=== PATIENT | female | born 1945 | race Two or more races ===

== ENCOUNTER 2019-10-08 15:05 | Inpatient (IN) | payer MEDICARE, OTHER ==
[~2019-10-08] VITALS: Ht 152.4 cm; Wt 57.2 kg
--- NOTE | 2019-10-08 17:00 | NUR ---
STOKER INSTALLATION MECHANIC NOTES PATIENT ARRIVED VIA GURNEY WITH EMT. PATIENT ALERT, ORIENTED X3 IRAQI SPEAKING. NO SOB OR ACUTE DISTRESS NOTED. PATIENT STATES SHE STOPPED TAKING HER MEDICATIONS FOR A MONTH AND SHE FELT PALPITATIONS AND SOB SO SHE CALLED 911. SHE STATES SHE LIVES AT HOME WITH DAUGHTERS. PATIENT STATES SHE DOES NOT REMEMBER THE NAMES OF HER MEDICATIONS. PATIENT ORIENTED TO ROOM, CALL LIGHT WITHIN REACH. PERIPHERAL IV INTACT PATENT. DR. MAYERS MADE AWARE OF PATIENTS ARRIVAL. WILL CONTINUE TO MONITOR.
[2019-10-08] MEDS ORDERED: ZOLPIDEM TARTRATE 5 MG TABLET PO PRN (18:30)
[2019-10-08] MEDS ORDERED: MAG HYDROX/AL HYDROX/SIMETH 30 ML UDC PO PRN (18:30)
[2019-10-08] MEDS ORDERED: Z GUARD REMEDY 2 OZ OINT TP PRN (18:30)
[2019-10-08] MEDS ORDERED: ONDANSETRON HCL/PF 4 MG/2 ML VIAL IVP PRN (18:30)
[2019-10-08] MEDS ORDERED: MAGNESIUM HYDROXIDE 30 ML UDC PO PRN (18:30)
[2019-10-08] MEDS ORDERED: ACETAMINOPHEN 325 MG TABLET PO PRN (18:30)
--- NOTE | 2019-10-08 19:04 | NUR ---
STAVE BLOCK SPLITTER NOTES PATIENT IN BED RESTING NO SOB OR ACUTE DISTRESS NOTED. FAMILY AT BEDSIDE. BED IN LOW LOCKED POSITION. CALL LIGHT WITHIN REACH. WILL ENDORSE CARE TO PM SHIFT.
[2019-10-08 19:28] LABS: BASOPHILS # (AUTO) 0.1 /CMM (0.0-0.2); BASOPHILS % (AUTO) 1.3 % (0.0-2.0); EOSINOPHILS % (AUTO) 1.4 % (0.0-6.0); HEMATOCRIT 30 % (33-45); HEMOGLOBIN 10.3 g/dL (11.5-14.8); LYMPHOCYTES # (AUTO) 1.1 /CMM (0.8-4.8); LYMPHOCYTES % (AUTO) 20.9 % (20.0-44.0); MEAN CORPUSCULAR HGB CONC 34 g/dl (31.0-36.0); MEAN CORPUSCULAR VOLUME 94 fL (82-100); MONOCYTES # (AUTO) 0.4 /CMM (0.1-1.30); MONOCYTES % (AUTO) 7.1 % (2.0-12.0); NEUTROPHILS # (AUTO) 3.5 /CMM (1.8-8.9); NEUTROPHILS % (AUTO) 69.3 % (43.0-81.0); PLATELET COUNT (AUTO) 121 /CMM (150-450); RED BLOOD CELL COUNT(AUTO) 3.23 MIL/uL (4.0-5.2); WHITE BLOOD COUNT (AUTO) 5.1 K/uL (4.3-11.0)
--- NOTE | 2019-10-08 19:49 | NUR ---
MS RN NOTES RECEIVED PATIENT AWAKE IN BED AND WATCHING TV WITH NO DISTRESS NOTED. CALL LIGHT WITHIN REACH. FAMILY AT BEDSIDE. NO C/O PAIN OR DISCOMFORT. PERIPHERAL LINE INTACT AND PATENT. ENCOURAGED USE OF CALL LIGHT FOR ASSISTANCE AND VERBALIZED GOOD UNDERSTANDING. ROOM FREE OF CLUTTER AND BELONGINGS KEPT NEAR BEDSIDE. BED IN LOW LOCK SETTING WITH BED ALARM ON AND FUNCTIONING PROPERLY.WILL CONTINUE TO MONITOR.
--- NOTE | 2019-10-08 19:50 | NUR ---
*ERROR* DEVULCANIZER OPERATOR NOTES*
[2019-10-08 20:00] VITALS: BP 176/78
[2019-10-08 20:15] LABS: CALCIUM, SERUM 9.5 mg/dL (8.5-10.1); CARBON DIOXIDE 26 mmol/L (21-32); CHLORIDE 104 mmol/L (98-107); GLUCOSE 113 mg/dL (74-106); POTASSIUM 4.8 mmol/L (3.5-5.1); SODIUM SERUM 142 mmol/L (136-145)
[2019-10-08 20:16] LABS: ALANINE AMINOTRANSFERASE 73 U/L (12-78); ALBUMIN 3.4 g/dL (3.4-5.0); ALKALINE PHOSPHATASE 147 U/L (46-116); ASPARTATE AMINOTRANSFERASE 77 U/L (15-37); BILIRUBIN,TOTAL 0.7 mg/dL (0.2-1.0); CREATININE 6.9 mg/dL (0.6-1.3); TOTAL PROTEIN, SERUM 7.2 g/dL (6.4-8.2); UREA NITROGEN, BLOOD 69 mg/dL (7-18)
[2019-10-08] MEDS: METOPROLOL TARTRATE 50 MG TABLET PO SCH (20:24)
[2019-10-09] VITALS: BP 159/87
[2019-10-09 04:45] VITALS: BP 147/83
[2019-10-09 06:17] LABS: BASOPHILS # (AUTO) 0.1 /CMM (0.0-0.2); BASOPHILS % (AUTO) 1.2 % (0.0-2.0); EOSINOPHILS % (AUTO) 3.2 % (0.0-6.0); HEMATOCRIT 27 % (33-45); HEMOGLOBIN 9.3 g/dL (11.5-14.8); LYMPHOCYTES # (AUTO) 1.2 /CMM (0.8-4.8); LYMPHOCYTES % (AUTO) 24.9 % (20.0-44.0); MEAN CORPUSCULAR HGB CONC 35 g/dl (31.0-36.0); MEAN CORPUSCULAR VOLUME 92 fL (82-100); MONOCYTES # (AUTO) 0.4 /CMM (0.1-1.30); MONOCYTES % (AUTO) 9.5 % (2.0-12.0); NEUTROPHILS # (AUTO) 2.9 /CMM (1.8-8.9); NEUTROPHILS % (AUTO) 61.2 % (43.0-81.0); PLATELET COUNT (AUTO) 121 /CMM (150-450); RED BLOOD CELL COUNT(AUTO) 2.92 MIL/uL (4.0-5.2); WHITE BLOOD COUNT (AUTO) 4.7 K/uL (4.3-11.0)
[2019-10-09 06:40] LABS: CHOLESTEROL 172 mg/dL (<200); HDL CHOLESTEROL 59 mg/dL (40-60); LDL 91 mg/dL (0-99); THYROID STIMULATING HORMONE 2.475 uIU/mL (0.358-3.74); TRIGLYCERIDES 100 mg/dL (30-150)
--- NOTE | 2019-10-09 06:43 | NUR ---
MECHANICAL TEST TECHNICIAN NOTES PATIENT ASLEEP IN BED WITH NO DISTRESS NOTED. CALL LIGHT WITHIN REACH. NO C/O PAIN OR DISCOMFORT NOTED DURING SHIFT. PERIPHERAL LINE INTACT AND PATENT. LFA AV SHUNT INTACT WITH (+) BRUIT AND THRILL. ALL DUE MEDS GIVEN ORDERED WITH NO ASE. BED IN LOW LOCK SETTING. ROOM FREE OF CLUTTER AND BELONGINGS KEPT NEAR BEDSIDE. WILL ENDORSE TO ONCOMING SHIFT.
[2019-10-09 07:47] LABS: CALCIUM, SERUM 9.5 mg/dL (8.5-10.1); CARBON DIOXIDE 23 mmol/L (21-32); CHLORIDE 104 mmol/L (98-107); CREATININE 7.4 mg/dL (0.6-1.3); GLUCOSE 108 mg/dL (74-106); PHOSPHORUS 4.4 mg/dL (2.5-4.9); POTASSIUM 4.9 mmol/L (3.5-5.1); SODIUM SERUM 142 mmol/L (136-145); UREA NITROGEN, BLOOD 73 mg/dL (7-18)
[2019-10-09 08:00] VITALS: BP 156/77
--- NOTE | 2019-10-09 08:00 | NUR ---
tele dining room host: initial assessment received pt in bed awake, a/ox4; romanian speaking only. no c/o pain or any discomfort. for hd today. consent in chart. pt still voiding as stated. instructed to call for assistance. will continue to monitor.
[2019-10-09] MEDS ORDERED: FUROSEMIDE 40 MG/4 ML VIAL IV SCH (09:00)
[2019-10-09] MEDS: METOPROLOL TARTRATE 50 MG TABLET PO SCH ×2 (09:00→20:06)
--- NOTE | 2019-10-09 09:15 | NUR ---
tele credit representative: notes family visiting and updated plan of care. pt for hd today, pt and family made aware. held b/p med due to hd tx.
--- NOTE | 2019-10-09 09:25 | NUR ---
tele sports anchor: cardio consult seen and examined by dr. vargas with new orders. orders acknowledged.
[2019-10-09] MEDS: ASPIRIN 81 MG TAB.CHEW PO SCH (10:55)
--- NOTE | 2019-10-09 11:21 | NUR ---
m/s aircraft stress analyst: nephro consult seen and examined by dr. paz with new orders. family remains at bedside and md answered all questions and concerns.
[2019-10-09] MEDS ORDERED: METOPROLOL TARTRATE INJ 5 MG/5 ML AMPUL ONE ×3 (11:28→12:30)
[2019-10-09] MEDS ORDERED: CT SWABBABLE VALVE TRANS SET 1 EA INFUS.SET MC ONE (11:28)
[2019-10-09] MEDS ORDERED: IOHEXOL-350 100 ML VIAL IV ONE (11:28)
[2019-10-09] MEDS ORDERED: IV NS 0.9% 250 ML IV ONE (11:29)
--- NOTE | 2019-10-09 11:40 | NUR ---
m/s consulting project director: notes picked up at this time for cta via w/c.
--- NOTE | 2019-10-09 13:18 | NUR ---
m/s predator control trapper: notes per covering nurse, pt came back at 1300 from cta. no distress noted. pt having lunch at this time. up in chair. instructed to call for assistance.
--- NOTE | 2019-10-09 14:25 | NUR ---
m/s operations engineer: notes maria guadalupe (hd nurse) here and preparing pt for hd tx at this time.
--- NOTE | 2019-10-09 15:10 | NUR ---
m/s vocational coordinator: notes hd tx in progress. no distress noted. will continue to monitor.
[2019-10-09] MEDS ORDERED: ALBUTEROL FS 2.5 MG/3 ML VIAL.NEB ONE (15:48)
[2019-10-09] MEDS ORDERED: IPRATROPIUM NEB FS 0.5 MG/2.5 ML AMPUL.NEB ONE (15:48)
[2019-10-09 16:00] VITALS: BP 150/68
[2019-10-09 17:30] VITALS: BP 156/77
--- NOTE | 2019-10-09 17:30 | NUR ---
m/s stud driver: notes hd completed with 0 uf per maria guadalupe (hd nurse). no distress noted. dinner served. needs attended. will continue to monitor.
[2019-10-09] MEDS: FERROUS SULFATE (325 MG) 325 MG/TAB TABLET PO SCH (18:00)
--- NOTE | 2019-10-09 19:26 | NUR ---
m/s icebox worker: notes report given to nicole (rn) for continuity of care.
--- NOTE | 2019-10-09 19:44 | NUR ---
MS RN NOTES PATIENT AWAKE IN BED WITH NO DISTRESS NOTED. CALL LIGHT WITHIN REACH. FAMILY AT BEDSIDE. NO C/O PAIN OR DISCOMFORT. PERIPHERAL LINE INTACT AND PATENT. LFA AV SHUNT INTACT WITH NO REDNESS, SWELLING, OR BLEEDING NOTED AND WITH (+) BRUIT AND THRILL. BED IN LOW LOCK SETTING. ROOM FREE OF CLUTTER AND ALL BELONGINGS KEPT NEAR BEDSIDE. WILL CONTINUE TO MONITOR.
[2019-10-09 20:44] VITALS: BP 118/81
[2019-10-10] MEDS: HYDROCODONE/APAP 5/325MG 1 EACH TABLET PO PRN (01:25)
[2019-10-10] MEDS: hydrALAZINE HCL IV 20 MG VIAL IV PRN (01:31)
--- NOTE | 2019-10-10 06:16 | NUR ---
MS RN NOTES PATIENT ASLEEP IN BED WITH DISTRESS NOTED. CALL LIGHT WITHIN REACH. ALL DUE MEDS GIVEN ORDERED WITH NO ASE NOTED. PRN HYDRALAZINE GIVEN FOR BP 182/85 AND EFFECTIVE WITH BP 151/83. NO FURTHER C/O PAIN OR DISCOMFORT. LFA AV SHUNT INTACT WITH (+) BRUIT AND THRILL. BED IN LOW LOCK SETTING. ROOM FREE OF CLUTTER AND BELONGINGS KEPT NEAR BEDSIDE. WILL ENDORSE TO ONCOMING SHIFT.
[2019-10-10 07:11] LABS: BASOPHILS # (AUTO) 0.1 /CMM (0.0-0.2); BASOPHILS % (AUTO) 1.1 % (0.0-2.0); EOSINOPHILS % (AUTO) 3.6 % (0.0-6.0); HEMATOCRIT 29 % (33-45); LYMPHOCYTES # (AUTO) 1.2 /CMM (0.8-4.8); LYMPHOCYTES % (AUTO) 24.9 % (20.0-44.0); MEAN CORPUSCULAR HGB CONC 35 g/dl (31.0-36.0); MEAN CORPUSCULAR VOLUME 93 fL (82-100); MONOCYTES # (AUTO) 0.5 /CMM (0.1-1.30); MONOCYTES % (AUTO) 9.4 % (2.0-12.0); NEUTROPHILS # (AUTO) 2.9 /CMM (1.8-8.9); PLATELET COUNT (AUTO) 125 /CMM (150-450); RED BLOOD CELL COUNT(AUTO) 3.11 MIL/uL (4.0-5.2); WHITE BLOOD COUNT (AUTO) 4.8 K/uL (4.3-11.0)
[2019-10-10 07:18] LABS: CALCIUM, SERUM 9.5 mg/dL (8.5-10.1); CARBON DIOXIDE 27 mmol/L (21-32); CHLORIDE 103 mmol/L (98-107); CREATININE 5.2 mg/dL (0.6-1.3); GLUCOSE 107 mg/dL (74-106); POTASSIUM 4.6 mmol/L (3.5-5.1); SODIUM SERUM 138 mmol/L (136-145); UREA NITROGEN, BLOOD 48 mg/dL (7-18)
[2019-10-10 08:00] VITALS: BP 160/86
--- NOTE | 2019-10-10 08:00 | NUR ---
MS RN RECEIVED ON BED, AWAKE,ALERT,ORIENTED X4,NOT IN ANY FORM OF DISTRESS,RESPIRATIONS EVEN AND UNLABORED,NO SOB NOTED ,LUNGS ARE CLEAR,ABDOMEN SOFT,POSITIVE BOWEL SOUNDS,DENIES PAIN AT THIS TIME,ALL NEEDS ATTENDED.
--- NOTE | 2019-10-10 09:00 | NUR ---
MS MELENDEZ BREAKFAST SERVED,DUE MEDS GIVEN,TOLERATED WELL.
[2019-10-10] MEDS: FERROUS SULFATE (325 MG) 325 MG/TAB TABLET PO SCH ×2 (09:20→19:01)
[2019-10-10] MEDS: ASPIRIN 81 MG TAB.CHEW PO SCH (09:20)
--- NOTE | 2019-10-10 09:50 | NUR ---
MS RN WAS SEEN BY CINDY Basilio/ ORDERS MADE AND CARRIED OUT.
[2019-10-10] MEDS: NEPRO VAN 237 ML CAN PO SCH (12:00)
--- NOTE | 2019-10-10 14:00 | NUR ---
MS RN PATIENT WAITING FOR HD TO BE DONE.
[2019-10-10] MEDS: METOPROLOL TARTRATE 50 MG TABLET PO SCH ×2 (19:01→21:38)
[2019-10-10 20:00] VITALS: BP_SYST 132; BP_SYST 152; BP_DIAS 73; BP_DIAS 75
--- NOTE | 2019-10-10 20:48 | NUR ---
patient received on bed awake, completed hemodialysis and with no untoward manifestation, with family at bedside
--- NOTE | 2019-10-10 22:20 | NUR ---
patient noted to be coughing persistently and Dr Mcallister paged and informed and gave orders.trop elevated and dx of Nstemi and no orders for blood thinners and no further orders, diamond broker is aware,
[2019-10-10] MEDS ORDERED: GUAIFENESIN 300 MG/15 ML UDC PO PRN (22:30)
[2019-10-11 01:00] VITALS: BP 140/88
[2019-10-11] MEDS: HYDROCODONE/APAP 5/325MG 1 EACH TABLET PO PRN (01:05)
[2019-10-11 07:13] LABS: BASOPHILS # (AUTO) 0.1 /CMM (0.0-0.2); BASOPHILS % (AUTO) 1.2 % (0.0-2.0); EOSINOPHILS % (AUTO) 2.7 % (0.0-6.0); HEMATOCRIT 30 % (33-45); HEMOGLOBIN 10.2 g/dL (11.5-14.8); LYMPHOCYTES % (AUTO) 19.5 % (20.0-44.0); MEAN CORPUSCULAR HGB CONC 34 g/dl (31.0-36.0); MEAN CORPUSCULAR VOLUME 93 fL (82-100); MONOCYTES # (AUTO) 0.4 /CMM (0.1-1.30); MONOCYTES % (AUTO) 8.4 % (2.0-12.0); NEUTROPHILS # (AUTO) 3.4 /CMM (1.8-8.9); NEUTROPHILS % (AUTO) 68.2 % (43.0-81.0); PLATELET COUNT (AUTO) 118 /CMM (150-450)
[2019-10-11 07:39] LABS: CALCIUM, SERUM 9.4 mg/dL (8.5-10.1); CARBON DIOXIDE 25 mmol/L (21-32); CHLORIDE 101 mmol/L (98-107); GLUCOSE 118 mg/dL (74-106); POTASSIUM 4.6 mmol/L (3.5-5.1); SODIUM SERUM 135 mmol/L (136-145); UREA NITROGEN, BLOOD 32 mg/dL (7-18)
[2019-10-11 08:00] VITALS: BP 186/90
[2019-10-11] MEDS: hydrALAZINE HCL IV 20 MG VIAL IV PRN (08:01)
[2019-10-11] MEDS: METOPROLOL TARTRATE 50 MG TABLET PO SCH ×2 (08:06→21:16)
--- NOTE | 2019-10-11 08:06 | NUR ---
BP VERY HIGH THIS AM,SO MEDICATED WITH HYDRALAZINE IV WELL LOPRESSOR.
[2019-10-11] MEDS: ASPIRIN 81 MG TAB.CHEW PO SCH (09:23)
[2019-10-11] MEDS: FERROUS SULFATE (325 MG) 325 MG/TAB TABLET PO SCH ×2 (09:24→16:17)
[2019-10-11] MEDS: NEPRO VAN 237 ML CAN PO SCH (12:16)
[2019-10-11] MEDS ORDERED: CLONIDINE HCL 0.1MG/24H PTWK 1 EA PATCH TD SCH (14:00)
--- NOTE | 2019-10-11 14:30 | NUR ---
NOW BP 116/70.
--- NOTE | 2019-10-11 14:30 | NUR ---
INITIALLY FOLLOWING DIALYSIS BP 171/71,HEART RATE 71.
[2019-10-11 16:00] VITALS: BP 156/79
--- NOTE | 2019-10-11 18:08 | NUR ---
SON IN TO VISIT,PT. UP IN [facility] AMBULATING.TOLERATING WELL. STARTED ON CATAPRES PATCH.
--- NOTE | 2019-10-11 19:05 | NUR ---
RN MS OPENING NOTES RECEIVED PATIENT IN BED AWAKE ALERT AND ORIENTED X, 4 ABLE TO MAKE NEEDS RESPIRATIONS EVEN AND UNLABORED WITH EQUAL RISE AND FALL OF CHEST, DENIES ANY PAIN OR DISCOMFORT AT THIS TIME, IV SITE TO RIGHT HAND #20 G INTACT AND PATENT, NO REDNESS, NO INFILTRATION PRESENT, LEFT FA SHUNT WITH BRUIT PRESENT, ORIENTED TO STAFF AND CALL LIGHT AND KEPT WITHIN REACH, LOW BED AND LOCKED, SAFETY PRECAUTIONS IN PLACE, BED ALARM IN PLACE, ALL NEEDS ATTENDED AT THIS TIME WILL CONTINUE TO MONITOR AND ATTEND TO NEEDS.
--- NOTE | 2019-10-11 19:36 | NUR ---
RN MS NOTES PATIENT COMPLAINT OF FEELING OF NAUSEA, AND ABDOMEN DISCOMFORT, OFFERED ZOFRAN PRN GIVEN WILL CONTINUE TO MONITOR FOR EFFECTIVENESS.
[2019-10-11 20:00] VITALS: BP 150/70
[2019-10-12] MEDS: HYDROCODONE/APAP 5/325MG 1 EACH TABLET PO PRN ×2 (00:18→23:22)
--- NOTE | 2019-10-12 00:18 | NUR ---
RN MS NOTES PATIENT COMPLAINT OF PAIN TO ABDOMEN AND HEADACHE 06/16 REQUESTING FOR PAIN MEDICATION NORCO PRN OFFERED, PATIENT AGREE, PRN NORCO GIVEN WILL CONTINUE TO MONITOR FOR EFFECTIVENESS. LIGHTS DIMMED.
--- NOTE | 2019-10-12 06:31 | NUR ---
RN MS CLOSING NOTES PATIENT IN BED AWAKE ALERT AND ORIENTED X, 4 ABLE TO MAKE NEEDS KNOWN , RESPIRATIONS EVEN AND UNLABORED WITH EQUAL RISE AND FALL OF CHEST, DENIES ANY PAIN OR DISCOMFORT AT THIS TIME, IV SITE TO RIGHT HAND #20 G INTACT AND PATENT, NO REDNESS, NO INFILTRATION PRESENT, SL, LEFT FA SHUNT WITH BRUIT PRESENT, CALL LIGHT KEPT WITHIN REACH, LOW BED AND LOCKED, SAFETY PRECAUTIONS IN PLACE, BED ALARM IN PLACE, ALL NEEDS ATTENDED AT THIS TIME WILL CONTINUE TO MONITOR AND ENDORSE TO NEXT SHIFT. PAIN MEDICATION AND ZOFRAN WERE EFFECTIVE. PATIENT SLEPT WELL.
[2019-10-12 06:47] LABS: CALCIUM, SERUM 9.6 mg/dL (8.5-10.1); CARBON DIOXIDE 26 mmol/L (21-32); CHLORIDE 103 mmol/L (98-107); CREATININE 3.7 mg/dL (0.6-1.3); GLUCOSE 114 mg/dL (74-106); POTASSIUM 4.4 mmol/L (3.5-5.1); SODIUM SERUM 139 mmol/L (136-145); UREA NITROGEN, BLOOD 34 mg/dL (7-18)
[2019-10-12 06:49] LABS: BASOPHILS # (AUTO) 0.1 /CMM (0.0-0.2); BASOPHILS % (AUTO) 1.3 % (0.0-2.0); EOSINOPHILS % (AUTO) 3.1 % (0.0-6.0); HEMATOCRIT 29 % (33-45); HEMOGLOBIN 9.9 g/dL (11.5-14.8); LYMPHOCYTES # (AUTO) 1.1 /CMM (0.8-4.8); LYMPHOCYTES % (AUTO) 23.6 % (20.0-44.0); MEAN CORPUSCULAR HGB CONC 34 g/dl (31.0-36.0); MEAN CORPUSCULAR VOLUME 94 fL (82-100); MONOCYTES # (AUTO) 0.4 /CMM (0.1-1.30); MONOCYTES % (AUTO) 8.9 % (2.0-12.0); NEUTROPHILS # (AUTO) 2.9 /CMM (1.8-8.9); NEUTROPHILS % (AUTO) 63.1 % (43.0-81.0); PLATELET COUNT (AUTO) 114 /CMM (150-450); RED BLOOD CELL COUNT(AUTO) 3.09 MIL/uL (4.0-5.2); WHITE BLOOD COUNT (AUTO) 4.6 K/uL (4.3-11.0)
--- NOTE | 2019-10-12 07:10 | NUR ---
MS RN NOTES PATIENT IN BED EYES CLOSED EASY TO AROUSE, NO ACUTE DISTRESS NOTED. BREATHING UNLABORED. NO SOB NOTED. SAFETY MEASURES IN PLACE. CALL LIGHT WITHIN REACH. WILL CONTINUE TO MONITOR ACCORDINGLY.
[2019-10-12 08:00] VITALS: BP_SYST 167; BP_SYST 184; BP_DIAS 89
[2019-10-12] MEDS: ASPIRIN 81 MG TAB.CHEW PO SCH (08:45)
[2019-10-12] MEDS: FERROUS SULFATE (325 MG) 325 MG/TAB TABLET PO SCH ×2 (08:45→16:23)
[2019-10-12] MEDS: METOPROLOL TARTRATE 50 MG TABLET PO SCH ×2 (08:46→20:30)
[2019-10-12] MEDS: NEPRO VAN 237 ML CAN PO SCH (12:03)
[2019-10-12] MEDS: hydrALAZINE HCL IV 20 MG VIAL IV PRN (16:24)
--- NOTE | 2019-10-12 16:24 | NUR ---
MS RN NOTES PATIENT NOTED WITH ELEVATED BLOOD PRESSURE 178/75, PULSE 70. NO ACUTE DISTRESS NOTED. WILL RECHECK BP AND CONTINUE TO MONITOR PATIENT. APRESOLINE IV GIVEN ORDERED.
[2019-10-12 17:30] VITALS: BP 150/70
--- NOTE | 2019-10-12 19:00 | NUR ---
MS RN NOTES PATIENT IN BED ALERT ORIENTED X 3, NO ACUTE DISTRESS NOTED. BREATHING UNLABORED. DIALYSIS ACCESS INTACT WITH DRESSING. NO SOB NOTED. NEEDS ATTENDED AND ANTICIPATED. KEPT CLEAN DRY AND COMFORTABLE. SAFETY MEASURES IN PLACE. CALL LIGHT WITHIN REACH. WILL ENDORSE TO NIGHT NURSE FOR CONTINUITY OF CARE.
--- NOTE | 2019-10-12 19:30 | NUR ---
rn initial notes: received report from jesus ruiz. pt sitting, a/o x4, mexican speaking, denies any pain or discomfort at this time. iv access patent and flushing well, on hl. s/p hd yesterday 10/11 2.7 L out. LFA AV SHUNT in placed. for hd in am. dc planning. discussed plan of care. elevated bp noted, prn Apresoline administered 2hrs ago, pt has scheduled Lopressor tonight. safety precautions for fall initiated, call light in reach, will continue monitoring pt.
[2019-10-12 20:00] VITALS: BP 171/78
[2019-10-12 20:14] VITALS: BP 171/78
--- NOTE | 2019-10-12 20:41 | NUR ---
rn notes: spoked with pt's daughter over the phone, answer questions/concerns. discussed update regarding pt's condition.
[2019-10-12 21:34] VITALS: BP 153/65
--- NOTE | 2019-10-12 22:15 | NUR ---
TRANSFER OF CARE NOTES: PT IN BED, SLEEPING, APPEARS CLAM AND COMFORTABLE. KARLOS AV SHUNT COVERED WITH DRESSING, C/D/I. IV ACCESS PATENT AND FLUSHING WELL, ON HL. FOR HD IN AM. VS REMAINS STABLE. ENDORSE TO [facility] FOR CONTINUITY OF CARE.
--- NOTE | 2019-10-12 22:29 | NUR ---
RECEIVE PT IN BED A/O X3, STABLE AND NOT IN DISTRESS, WILL CONTINUE TO MONITOR
[2019-10-13] MEDS: HYDROCODONE/APAP 5/325MG 1 EACH TABLET PO PRN (04:38)
--- NOTE | 2019-10-13 06:05 | NUR ---
ASLEEP AND EASILY AWAKEN, RESPIRATIONS EVEN AND UNLABORED. NO C/O PAIN AT THIS TIME. STABLE, NO CHEST PAIN. ALL NEEDS ATTENDED AND ANTICIPATED. KEPT CLEAN, DRY AND COMFORTABLE AT ALL TIMES. NURSING CARE RENDERED. SAFETY MEASURES AT ALL TIMES. WILL ENDORSE NEXT SHIFT POC. PT MOVED TO RM 306-1 PER PT REQUEST ALL BELONGINGS TAKEN WITH THE PATIENT.
--- NOTE | 2019-10-13 07:10 | NUR ---
MS RN OPENING NOTES RECEIVED PT IN BED, ASLEEP, EASILY AROUSED. A/O X3. TOLERATING RA, WITH NO ACUTE RESPIRATORY DISTRESS NOTED. PT DENIES ANY PAIN OR DISCOMFORT AT THIS TIME. ALSO DENIES CONCERNS OR QUESTIONS AT THIS MOMENT. PIV TO R HAND G20, FLUSHED WITH NS, INTACT AND OPERATIONAL. LEFT ARM AV SHUNT PRESENT FOR HD ACCESS. PT KEPT COMFORTABLE. CALL LIGHT KEPT WITHIN REACH. PT'S BED IN LOWEST, LOCKED POSITION WITH SR X3. WILL CONTINUE TO PLAN OF CARE.
[2019-10-13 07:26] LABS: BASOPHILS # (AUTO) 0.1 /CMM (0.0-0.2); BASOPHILS % (AUTO) 1.2 % (0.0-2.0); EOSINOPHILS % (AUTO) 3.5 % (0.0-6.0); HEMATOCRIT 31 % (33-45); HEMOGLOBIN 10.4 g/dL (11.5-14.8); LYMPHOCYTES # (AUTO) 1.2 /CMM (0.8-4.8); MEAN CORPUSCULAR HGB CONC 34 g/dl (31.0-36.0); MEAN CORPUSCULAR VOLUME 93 fL (82-100); MONOCYTES # (AUTO) 0.4 /CMM (0.1-1.30); MONOCYTES % (AUTO) 8.1 % (2.0-12.0); NEUTROPHILS # (AUTO) 3.4 /CMM (1.8-8.9); NEUTROPHILS % (AUTO) 65.2 % (43.0-81.0); PLATELET COUNT (AUTO) 117 /CMM (150-450); RED BLOOD CELL COUNT(AUTO) 3.28 MIL/uL (4.0-5.2); WHITE BLOOD COUNT (AUTO) 5.3 K/uL (4.3-11.0)
[2019-10-13 07:51] LABS: CALCIUM, SERUM 9.2 mg/dL (8.5-10.1); CARBON DIOXIDE 23 mmol/L (21-32); CHLORIDE 100 mmol/L (98-107); CREATININE 5.1 mg/dL (0.6-1.3); GLUCOSE 110 mg/dL (74-106); SODIUM SERUM 138 mmol/L (136-145); UREA NITROGEN, BLOOD 51 mg/dL (7-18)
[2019-10-13 08:00] VITALS: BP 170/79
[2019-10-13] MEDS: ASPIRIN 81 MG TAB.CHEW PO SCH (08:22)
[2019-10-13] MEDS: FERROUS SULFATE (325 MG) 325 MG/TAB TABLET PO SCH (08:22)
[2019-10-13] MEDS: METOPROLOL TARTRATE 50 MG TABLET PO SCH (08:22)
[2019-10-13] MEDS ORDERED: ASPI-605 PO (11:24)
[2019-10-13] MEDS ORDERED: METO50TA16 PO (11:24)
[2019-10-13] MEDS ORDERED: FERR325T23 PO (11:24)
[2019-10-13] MEDS ORDERED: CLON0.1T14 PO (11:24)
[2019-10-13 13:10] VITALS: BP 181/75
[2019-10-13] MEDS: hydrALAZINE HCL IV 20 MG VIAL IV PRN (13:10)
[2019-10-13] MEDS: NEPRO VAN 237 ML CAN PO SCH (13:11)
--- NOTE | 2019-10-13 15:50 | NUR ---
MS NEW ACCOUNTS BANKING REPRESENTATIVE NOTES PT IN BED,AWAKE, A/O X3, FOR DISCHARGE TO HOME WITH FAMILY. PT TOLERATING RA, WITH NO ACUTE RESPIRATORY DISTRESS NOTED. PT DENIES ANY PAIN OR DISCOMFORT AT THIS TIME. DISCHARGE INSTRUCTIONS AND INVENTORY LIST WERE REVIEWED AND SIGNED BY DAUGHTER. ALL BELONGINGS WITH THE PT. PIV TO R HAND G20, REMOVED, APPLIED DRY DRESSING. LEFT ARM AV SHUNT PRESENT FOR HD ACCESS; PT HAD HD TODAY WITH 2.1L OUTPUT. PT SKIN IS INTACT, NO PICTURES TAKEN AND FILED IN THE CHART. ALL NEEDS AND CARE ATTENDED. HOSPITALIST/DT AND CN/ALEJANDRO AWARE OF DISCHARGE. PT LEFT THE UNIT AT 1545, ESCORTED BY WARPER FIXER IN A WHEELCHAIR, ACCOMPANIED BY THE DAUGHTER.
== END 2019-10-13 15:54 | disposition home or self-care (01) | DRG 280 ==
LOC: TELE 16:43 → MED 10-09 11:13
PROVIDERS: ADMIT Student in an Organized Health Care Education/Training Program; ATTEND Nurse Practitioner Acute Care
PROC: 5A1D70Z Performance of Urinary Filtration, Intermittent, Less than 6 Hours Per Day (ICD-10-PCS; principal; 2019-10-09)
DX: I13.2 Hypertensive heart and chronic kidney disease with heart failure and with stage 5 chronic kidney disease, or end stage renal disease (principal); I21.4 Non-ST elevation (NSTEMI) myocardial infarction; N18.6 End stage renal disease; I50.33 Acute on chronic diastolic (congestive) heart failure; J90 Pleural effusion, not elsewhere classified; I30.1 Infective pericarditis; E78.5 Hyperlipidemia, unspecified; Z99.2 Dependence on renal dialysis; Z91.19 Patient's noncompliance with other medical treatment and regimen; R74.0 Nonspecific elevation of levels of transaminase and lactic acid dehydrogenase [LDH]; I70.0 Atherosclerosis of aorta; D50.9 Iron deficiency anemia, unspecified
CPT/HCPCS: 36415; 71045-TC; 75574; 80048-TC; 80053-TC; 80061-TC; 82728-TC; 83540-TC; 83605-TC; 83735-TC; 84100-TC; 84443-TC; 84484-TC; 85025-TC; 86706; 87081-TC; 87340; 90935-TC; 93307-TC; 97116-TC; 97530-TC; G0378; J0360; J2405; J3490; J7050; Q9967